=== PATIENT | male | born 1945 | race African-American/Black ===

== ENCOUNTER 2016-11-21 08:49 | Emergency (ER) | payer MEDICAID, MEDICARE ==
[~2016-11-21] VITALS: Ht 190.5 cm; Wt 93.0 kg
[2016-11-21] MEDS ORDERED: DIGO125T82 PO (08:59)
[2016-11-21] MEDS ORDERED: ALBU18HF2 IH (09:00)
[2016-11-21] MEDS ORDERED: IPRA4AER IH (09:00)
[2016-11-21 12:05] LABS: CLARITY URINE CLEAR (CLEAR); COLOR URINE YELLOW (YELLOW); GLUCOSE URINE NEGATIVE (NEGATIVE); KETONES URINE NEGATIVE (NEGATIVE); LEUKOCYTE ESTERASE URINE NEGATIVE (NEGATIVE); NITRITE URINE NEGATIVE (NEGATIVE); OCCULT BLOOD URINE NEGATIVE (NEGATIVE); PROTEIN URINE NEGATIVE (NEGATIVE); SPECIFIC GRAVITY URINE 1.012 (1.005-1.030); UROBILINOGEN URINE 0.2 E.U./dL (0.2-1.0)
[2016-11-21 13:13] VITALS: BP 139/85
== END 2016-11-21 13:20 | disposition home or self-care (01) ==
LOC: ER 08:49
DX: S39.011A Strain of muscle, fascia and tendon of abdomen, initial encounter (principal); N50.812 Left testicular pain; N43.3 Hydrocele, unspecified; J45.909 Unspecified asthma, uncomplicated; I48.92 Unspecified atrial flutter; W01.0XXA Fall on same level from slipping, tripping and stumbling without subsequent striking against object, initial encounter; Y93.89 Activity, other specified; Y92.89 Other specified places as the place of occurrence of the external cause
CPT/HCPCS: 76870; 81003; 93976; 99285

== ENCOUNTER 2016-12-09 11:20 | Inpatient (IN) | payer MEDICARE, MEDICAID ==
[~2016-12-09] VITALS: Ht 190.5 cm; Wt 94.3 kg
[~2016-12-09 11:20] MED LIST: ALBU18HF2 IH; DIGO125T82 PO; IPRA4AER IH
[2016-12-09 13:11] LABS: BASOPHILS % 0.6 % (0.0-2.0); EOSINOPHILS % 4.8 % (0.0-5.0); HEMOGLOBIN. 10.2 g/dL (14.0-18.0); MEAN CORPUSCULAR HEMOGLOBIN 28.3 pg (28.0-32.0); MEAN CORPUSCULAR VOLUME 83.2 fL (80.0-94.0); MEAN PLATELET VOLUME 8.3 fl (7.4-10.4); MONOCYTES % 9.1 % (2.0-8.0); NEUTROPHILS % 72.5 % (40.0-76.0); PLATELET 163 x1000/uL (130-400); RED CELL DISTRIBUTION WIDTH 14.2 % (11.6-14.6)
[2016-12-09 13:19] LABS: D-DIMER 4.19 mg/L FEU (<0.50); INR 1.1; PARTIAL THROMBOPLASTIN TIME 25.6 sec (23.4-31.0); PROTHROMBIN TIME 11.8 sec (9.4-11.6)
[2016-12-09 13:25] LABS: CARBON DIOXIDE 28 mEq/L (21-32); CHLORIDE 109 mEq/L (98-107); TROPONIN I < 0.02 ng/mL (0.00-0.04)
[2016-12-09 13:51] LABS: HEPATITIS B SURFACE ANTIGEN NEGATIVE
[2016-12-09 14:18] LABS: HEPATITIS B CORE AB IGM NEGATIVE
[2016-12-09 14:20] LABS: HEPATITIS A AB IGM NEGATIVE (NEGATIVE)
[2016-12-09 15:51] LABS: CLARITY URINE CLEAR (CLEAR); COLOR URINE YELLOW (YELLOW); GLUCOSE URINE NEGATIVE (NEGATIVE); KETONES URINE NEGATIVE (NEGATIVE); LEUKOCYTE ESTERASE URINE NEGATIVE (NEGATIVE); NITRITE URINE NEGATIVE (NEGATIVE); OCCULT BLOOD URINE NEGATIVE (NEGATIVE); PROTEIN URINE NEGATIVE (NEGATIVE); SPECIFIC GRAVITY URINE 1.012 (1.005-1.030); UROBILINOGEN URINE 0.2 E.U./dL (0.2-1.0)
[2016-12-09 16:29] LABS: *AMPHETAMINES SCREEN URINE NEGATIVE (NEGATIVE); *BARBITURATES SCREEN URINE NEGATIVE (NEGATIVE); *BENZODIAZEPINES SCREEN URINE NEGATIVE (NEGATIVE); *COCAINE SCREEN URINE NEGATIVE (NEGATIVE); CANNABINOID URINE SCREEN NEGATIVE (NEGATIVE); METHADONE URINE SCREEN NEGATIVE (NEGATIVE); OPIATES URINE SCREEN NEGATIVE (NEGATIVE); PHENCYCLIDINE URINE SCREEN NEGATIVE (NEGATIVE)
[2016-12-09 20:00] VITALS: BP 135/85
[2016-12-09] MEDS ORDERED: ZOLPIDEM TARTRATE 5MG TABLET PO PRN (20:00)
[2016-12-09] MEDS ORDERED: ONDANSETRON HCL 4MG/2ML VIAL IV PRN (20:00)
[2016-12-09] MEDS ORDERED: ACETAMINOPHEN 325MG TABLET PO PRN (20:00)
[2016-12-09] MEDS ORDERED: MAGNESIUM/ALUMINUM HYDROXIDE/SIMETHICONE 30ML UDC PO PRN (20:00)
[2016-12-09] MEDS ORDERED: DIPHENHYDRAMINE 50MG/ML VIAL IV PRN (20:00)
[2016-12-09] MEDS ORDERED: CLONIDINE 0.1MG TABLET PO PRN (20:00)
[2016-12-09] MEDS ORDERED: IPRATROPIUM/ALBUTEROL 0.5-3(2.5)MG/3ML NEB INH PRN (20:00)
[2016-12-09] MEDS ORDERED: GUAIFENESIN 200MG/10ML SUGAR FREE UDC PO PRN (20:00)
[2016-12-09] MEDS: SODIUM CHLORIDE 0.9% INJ 3ML FLUSH IVF SCH (21:27)
[2016-12-09] MEDS: ENOXAPARIN 100MG/ML SYR SUBCUT SCH (21:28)
[2016-12-10 00:21] VITALS: BP 136/86
[2016-12-10] MEDS ORDERED: IBUPROFEN 600MG TABLET PO PRN (01:30)
[2016-12-10 04:00] VITALS: BP 127/80
[2016-12-10] MEDS: SODIUM CHLORIDE 0.9% INJ 3ML FLUSH IVF SCH (06:58)
[2016-12-10 08:00] VITALS: BP 137/93
[2016-12-10] MEDS: ENOXAPARIN 100MG/ML SYR SUBCUT SCH ×2 (09:00→09:04)
[2016-12-10] MEDS ORDERED: APIXABAN 5 MG TABLET PO SCH (17:00)
[2016-12-10] MEDS ORDERED: DIGOXIN 125MCG TABLET PO SCH (18:00)
[2016-12-10] MEDS ORDERED: DIGOXIN 500MCG/2ML AMP IV SCH (18:00)
== END 2016-12-10 11:30 | disposition left against medical advice (07) | DRG 683 ==
LOC: ER 12:40 → 6WST 16:02 → EDBEDREQTM 16:05 → EDBEDREQ 16:05 → ENRESERV 18:05
PROVIDERS: ADMIT Internal Medicine; ATTEND Internal Medicine
DX: N17.9 Acute kidney failure, unspecified (principal); I48.92 Unspecified atrial flutter; I11.0 Hypertensive heart disease with heart failure; I48.2 Chronic atrial fibrillation; I50.9 Heart failure, unspecified; J45.909 Unspecified asthma, uncomplicated; Z85.038 Personal history of other malignant neoplasm of large intestine; Z79.899 Other long term (current) drug therapy; Z53.21 Procedure and treatment not carried out due to patient leaving prior to being seen by health care provider; M71.20 Synovial cyst of popliteal space [Baker], unspecified knee
CPT/HCPCS: 36415; 71010; 80053; 80162; 80305; 81003; 83036; 83880; 84484; 85025; 85379; 85610; 85651; 85730; 86705; 86709; 86803; 87340; 93005; 93970; 99285; J1650